=== PATIENT | female | born 1950 | race Caucasian/White ===

== ENCOUNTER → 2016-12-16 | Outpatient (CLI) | payer MEDICARE | LOC: MC.RAD 14:20 | DX: Z12.31 Encounter for screening mammogram for malignant neoplasm of breast (principal); N63 Unspecified lump in breast ==

== ENCOUNTER → 2016-12-25 | Outpatient (CLI) | payer MEDICARE | LOC: MC.RAD 08:17 | DX: N63 Unspecified lump in breast (principal) ==

== ENCOUNTER → 2021-02-14 | Outpatient (CLI) | payer MEDICARE ==
[~2021-02-14] VITALS: Ht 149.9 cm; Wt 52.1 kg
[~2021-02-14] MED LIST: ALEVE 220MG220 MG PO; AMBIEN 10MG10 MG PO; ASPI325T6 PO; ASPIRIN E.C. 8181 MG PO; ATIVAN 1MG T1 MG/TAB PO; CHANTIX 1MG1 MG PO; CLARITIN D TAB1 TAB PO; EXCEDRIN1 TAB PO; IMDUR 30MG30 MG/TAB PO; LIPITOR 40MG TA40 MG PO; MUCINEX DM 30 M1 TE1 PO; NITROSTAT0.4 MG/TAB SL; PROTONIX 40MG T40 MG PO; ZOLOFT 100MG100 MG PO
[2021-02-14 10:55] VITALS: BP 136/84; PULSE 82; TEMP 98.5
[2021-02-14 12:09] VITALS: BP 144/83; PULSE 84
[2021-02-14 12:10] VITALS: BP 146/91; PULSE 86
[2021-02-14 12:11] VITALS: BP 138/97; PULSE 88
[2021-02-14 12:12] VITALS: BP 145/92; PULSE 92
== END ==
LOC: COL.CARD 09:55
DX: F41.9 Anxiety disorder, unspecified (principal); R07.89 Other chest pain; R60.1 Generalized edema
CPT/HCPCS: A9500; J2785

== ENCOUNTER → 2021-02-15 | Outpatient (CLI) | payer MEDICARE | LOC: COL.VAS 12:07 | DX: I34.0 Nonrheumatic mitral (valve) insufficiency (principal); F41.9 Anxiety disorder, unspecified; R60.1 Generalized edema ==

== ENCOUNTER 2021-03-07 12:01 | Day surgery (SDC) | payer MEDICARE ==
[~2021-03-07] VITALS: Ht 149.9 cm; Wt 53.0 kg
[2021-03-07] VITALS (9 sets, daily range): BP systolic 97–146; BP diastolic 63–97; PULSE 60–86; TEMP 98
[~2021-03-07 12:01] MED LIST changes: -ASPI325T6 PO; -ASPIRIN E.C. 8181 MG PO; -CHANTIX 1MG1 MG PO; -IMDUR 30MG30 MG/TAB PO; -LIPITOR 40MG TA40 MG PO; -NITROSTAT0.4 MG/TAB SL
[2021-03-07 12:48] LABS: HEMATOCRIT 42.2 % (37.0-47.0); HEMOGLOBIN 14.4 g/dl (12.5-16.0); MEAN CELL VOLUME 98 fl (80.0-100.0); MEAN CORPUSCULAR HEMOGLOBIN 33 pg (27.0-31.0); MEAN CORPUSCULAR HGB CONC 34 g/dl (33.0-37.0); MEAN PLATELET VOLUME 9.3 fl (7.4-10.4); PLATELET COUNT 329 K/mm3 (130-400); RED BLOOD COUNT 4.33 M/mm3 (4.10-5.30); REDCELL DISTRIBUTION WIDTH-CV 14.1 % (11.5-14.5)
[2021-03-07] MEDS ORDERED: ASPIRIN E.C. 8181 MG PO (12:54)
[2021-03-07] MEDS ORDERED: ASPI325T6 PO (12:55)
[2021-03-07 12:56] LABS: INR 1.1 (0.8-3.0)
[2021-03-07] MEDS ORDERED: CHANTIX 1MG1 MG PO (12:56)
[2021-03-07] MEDS ORDERED: NITROSTAT0.4 MG/TAB SL (12:57)
[2021-03-07 12:58] LABS: CALCIUM 9.7 mg/dL (8.4-10.2); CREATININE, serum 0.67 (0.52-1.25); POTASSIUM 3.6 mmol/L (3.4-5.0)
[2021-03-07 12:59] LABS: PARTIAL THROMBOPLASTIN TIME 33.9 SECONDS (26.0-37.0)
--- NOTE | 2021-03-07 13:53 | NUR ---
SEE MERGE DOCUMENTATION FOR MEDICATION ADMINISTRATION TIMES AND INTRA/POST PROCEDURE SEDATION ASSESSMENTS.
--- NOTE | 2021-03-07 14:30 | NUR ---
PT TO EU 10 VIA BED FROM LOOM REPAIRER, PT IS AWAKE AND ALERT. NO C/O PAIN, CALL LIGHT IN REACH, TR BAND IN TACT WITH 10CC OF AIR, REVIEWED ACTIVITY WITH PT, ON TELE, SIPS ON WATER AND TAKES CRACKERS
[2021-03-07] MEDS ORDERED: LIPITOR 40MG TA40 MG PO (14:42)
[2021-03-07] MEDS ORDERED: IMDUR 30MG30 MG/TAB PO (14:43)
--- NOTE | 2021-03-07 15:15 | NUR ---
PT USES PHONE IN BED, ECHO ORDERED AND DONE. NO C/O, DID NOT WANT MEAL AT THIS TIME
--- NOTE | 2021-03-07 16:00 | NUR ---
PT UP TO B/R TO VOID, TOLERATED WELL, ASSESSMENT UNCHANGED
--- NOTE | 2021-03-07 16:30 | NUR ---
AIR RELEASED FROM BAND 2CC THEN WAITED 10 MIN RELEASED 2CC, AIR REMOVED AT 1650, NO BLEEDING OR SWELLING NOTED, BANDAID OVER SITE, WITH COBAN FOR SUPPORT. REVIEWED DISCHARGE INST. WITH PT, PT WILL TELEPHONE MAINTAINER 2 NEW RX TODAY, ALSO REVIEWED ACTIVITY AND PRECAUTIONS TO WRIST, ALSO APPTS MADE REVIEWED WITH PT WITH VERBAL UNDERSTANDING/.
--- NOTE | 2021-03-07 17:00 | NUR ---
IV D'CD INTACT AND PT IS UP IN ROOM DRESSED. DISCHARGED AT 1710 VIA W/C TO CAR WITH SON
== END 2021-03-07 17:15 | disposition home or self-care (01) ==
LOC: COL.CAR 12:01
PROVIDERS: Internal Medicine Cardiovascular Disease
DX: I25.10 Atherosclerotic heart disease of native coronary artery without angina pectoris (principal); E78.2 Mixed hyperlipidemia; K21.9 Gastro-esophageal reflux disease without esophagitis; F17.210 Nicotine dependence, cigarettes, uncomplicated; Z79.899 Other long term (current) drug therapy; Z20.822 Contact with and (suspected) exposure to COVID-19; Z83.3 Family history of diabetes mellitus
CPT/HCPCS: J1644; J2250; J3010; Q9967

== ENCOUNTER → 2021-03-16 | Outpatient (CLI) | payer MEDICARE ==
[~2021-03-16] MED LIST changes: +ASPI325T6 PO; +ASPIRIN E.C. 8181 MG PO; +CHANTIX 1MG1 MG PO; +IMDUR 30MG30 MG/TAB PO; +LIPITOR 40MG TA40 MG PO; +NITROSTAT0.4 MG/TAB SL
== END ==
LOC: COL.PUL 07:33
DX: I25.118 Atherosclerotic heart disease of native coronary artery with other forms of angina pectoris (principal)

== ENCOUNTER 2021-06-15 16:02 | Emergency (ER) | payer MEDICARE ==
[~2021-06-15] VITALS: Ht 149.9 cm; Wt 51.8 kg
[2021-06-15 17:25] LABS: BASO # 0.1 K/mm3 (0.0-0.2); BASO % 0.7 % (0.0-2.0); EOS # 0.3 K/mm3 (0.0-0.7); EOS % 3.2 % (0.0-4.0); GRAN % 46.6 % (42.2-75.2); HEMATOCRIT 37.6 % (37.0-47.0); HEMOGLOBIN 12.1 g/dl (12.5-16.0); LYMPH # 3.5 K/mm3 (1.2-3.4); LYMPH % 41.5 % (20.0-51.0); MEAN CELL VOLUME 94 fl (80.0-100.0); MEAN CORPUSCULAR HEMOGLOBIN 30 pg (27-31); MEAN CORPUSCULAR HGB CONC 32 g/dl (33.0-37.0); MEAN PLATELET VOLUME 9.3 fl (7.4-10.4); MONO # 0.7 K/mm3 (0.1-0.6); MONO % 7.9 % (1.7-9.3); PLATELET COUNT 289 K/mm3 (130-400); RED BLOOD COUNT 3.99 M/mm3 (4.10-5.30); REDCELL DISTRIBUTION WIDTH-CV 15.1 % (11.5-14.5)
[2021-06-15 17:33] LABS: INR 1.1 (0.8-3.0); PROTHROMBIN TIME 12.7 SECONDS (9.7-12.8)
[2021-06-15 17:36] LABS: PARTIAL THROMBOPLASTIN TIME 34.2 SECONDS (26.0-37.0)
[2021-06-15 17:45] LABS: ALBUMIN 3.5 gm/dL (3.4-4.8); BILIRUBIN,TOTAL 0.3 mg/dL (0.2-1.2); CALCIUM 8.9 mg/dL (8.4-10.2); CREATININE, serum 0.69 mg/dL (0.57-1.11); TOTAL PROTEIN 7.1 gm/dL (6.2-8.1)
[2021-06-15 17:51] LABS: TROPONIN-I 0.016 ng/mL (0.00-0.033)
[2021-06-15 21:47] VITALS: BP 148/91; PULSE 96; TEMP 97.8
== END 2021-06-15 21:47 | disposition home or self-care (01) ==
LOC: COL.ER 16:02
PROVIDERS: Emergency Medicine
DX: R06.02 Shortness of breath (principal); R00.0 Tachycardia, unspecified; R60.0 Localized edema; E87.6 Hypokalemia; R79.89 Other specified abnormal findings of blood chemistry; E78.5 Hyperlipidemia, unspecified; I25.10 Atherosclerotic heart disease of native coronary artery without angina pectoris; Z87.891 Personal history of nicotine dependence; Z79.899 Other long term (current) drug therapy; Z79.82 Long term (current) use of aspirin; Z20.822 Contact with and (suspected) exposure to COVID-19
CPT/HCPCS: J1940; J7040; Q9967

== ENCOUNTER 2021-06-27 13:49 | Outpatient (RCR) | payer MEDICARE | END 2021-06-29 | disposition home or self-care (01) | LOC: COL.CR | DX: Z48.812 Encounter for surgical aftercare following surgery on the circulatory system (principal); Z95.1 Presence of aortocoronary bypass graft; I25.10 Atherosclerotic heart disease of native coronary artery without angina pectoris ==

== ENCOUNTER 2021-07-27 13:55 | Outpatient (RCR) | payer MEDICARE | END 2021-07-30 06:18 | disposition home or self-care (01) | LOC: COL.CR 13:55 | DX: Z48.812 Encounter for surgical aftercare following surgery on the circulatory system (principal); Z95.1 Presence of aortocoronary bypass graft; I25.10 Atherosclerotic heart disease of native coronary artery without angina pectoris ==

== ENCOUNTER → 2021-08-10 | Outpatient (CLI) | payer MEDICARE | LOC: COL.RAD 13:06 | DX: Z95.1 Presence of aortocoronary bypass graft (principal) ==

== ENCOUNTER 2021-09-26 06:15 | Inpatient (IN) | payer MEDICARE ==
[~2021-09-26] VITALS: Ht 149.9 cm; Wt 44.8 kg
[2021-09-26 07:00] LABS: COLLECTION METHOD CLEAN CATCH
[2021-09-26 07:09] LABS: BASO # 0.1 K/mm3 (0.0-0.2); BASO % 0.4 % (0.0-2.0); EOS % 0.1 % (0.0-4.0); GRAN # 10.5 K/mm3 (1.4-6.5); GRAN % 75.4 % (42.2-75.2); HEMATOCRIT 37.5 % (37.0-47.0); HEMOGLOBIN 13.2 g/dl (12.5-16.0); LYMPH % 14.1 % (20.0-51.0); MEAN CELL VOLUME 87 fl (80.0-100.0); MEAN CORPUSCULAR HEMOGLOBIN 31 pg (27-31); MEAN CORPUSCULAR HGB CONC 35 g/dl (33.0-37.0); MEAN PLATELET VOLUME 9.5 fl (7.4-10.4); MONO # 1.3 K/mm3 (0.1-0.6); MONO % 9.1 % (1.7-9.3); PLATELET COUNT 429 K/mm3 (130-400); RED BLOOD COUNT 4.32 M/mm3 (4.10-5.30); REDCELL DISTRIBUTION WIDTH-CV 15.8 % (11.5-14.5)
[2021-09-26 07:26] LABS: ALBUMIN 2.6 gm/dL (3.4-4.8); BILIRUBIN,TOTAL 0.7 mg/dL (0.2-1.2); CALCIUM 9.2 mg/dL (8.4-10.2); CREATININE, serum 1.12 mg/dL (0.57-1.11); MUCOUS Present (NOT PRESENT); PH 5 (5-8); SQUAMOUS EPITHELIAL 0-2 /hpf (0-10); TOTAL PROTEIN 7.7 gm/dL (6.2-8.1); URINE APPEARANCE Clear (CLEAR/HAZY); URINE BACTERIA None Seen /hpf (NONE SEEN); URINE BILIRUBIN Negative (NEGATIVE); URINE BLOOD 1+ (NEGATIVE); URINE COLOR Yellow (YELLOW); URINE GLUCOSE Negative (NEGATIVE); URINE KETONE 2+ (NEGATIVE); URINE LEUKOCYTE ESTERASE Negative (NEGATIVE); URINE NITRATE Negative (NEGATIVE); URINE PROTEIN(semi-quant) 2+ (NEGATIVE); URINE UROBILINOGEN >=4.0 (NEGATIVE)
[2021-09-26 07:38] LABS: POTASSIUM 1.9 mmol/L (3.5-4.5); TROPONIN-I 0.29 ng/mL (0.00-0.033)
[2021-09-26 08:08] LABS: INR 2.3 (0.8-3.0); PROTHROMBIN TIME 25.2 SECONDS (9.7-12.8)
[2021-09-26 08:10] LABS: PARTIAL THROMBOPLASTIN TIME 37.6 SECONDS (26.0-37.0)
[2021-09-26] MEDS ORDERED: LASIX 20MG TABL20 MG PO (08:33)
[2021-09-26] MEDS ORDERED: ZEBETA 5MG5 MG PO (08:40)
[2021-09-26 11:32] VITALS: BP 128/70; PULSE 84; TEMP 97.9
[2021-09-26 14:27] LABS: CALCIUM 8.4 mg/dL (8.4-10.2); CREATININE, serum 0.82 mg/dL (0.57-1.11)
[2021-09-26 14:39] LABS: POTASSIUM 2.1 mmol/L (3.5-4.5); TROPONIN-I 6 HR POST INITIAL 0.197 ng/mL (0.00-0.033)
[2021-09-26 17:02] VITALS: BP 108/58; PULSE 95; TEMP 98.2
--- NOTE | 2021-09-26 18:55 | NUR ---
PT LAYING IN BED, DENIES ANY NEEDS AT THIS TIME. DOES HAVE A COMPLAINT OF PAIN IN HER BACK, BUT STATES IT MAY BE DUE TO THE BED. NO OTHER CONCERNS.
--- NOTE | 2021-09-26 19:11 | NUR ---
Pt rested in bed after arriving to the floor. She is A/O x4. Breathing even and unlabored on RA. Denies SOB. No N/V, ate a small lunch. Pt was incontinent of stool this afternoon. Very weak, and 2A to BSC. Cardizem infusing per orders, remains in Afib. Pt has no further needs, call light within reach.
[2021-09-26 20:21] VITALS: BP 123/62; PULSE 58; TEMP 98.1
[2021-09-27 00:33] VITALS: BP 101/56; PULSE 70; TEMP 97.6
--- NOTE | 2021-09-27 01:37 | NUR ---
PT IS RESTING IN HER BED, SHE HAS NOT GOTTEN MUCH SLEEP. SHE CONTINUES TO RECEIVE POTASSIUM IV. THE LAST BAG IS RUNNING AT THIS TIME. NO OTHER CONCERNS. WILL CONTINUE TO MONITOR THROUGH THE NIGHT.
[2021-09-27 04:58] VITALS: BP 111/61; PULSE 85; TEMP 98.7
--- NOTE | 2021-09-27 07:26 | NUR ---
REPORT GIVEN TO KIN MACK.
[2021-09-27 07:31] VITALS: BP 108/62; PULSE 98; TEMP 98.5
[2021-09-27 08:09] LABS: BASO % 0.2 % (0.0-2.0); EOS # 0.1 K/mm3 (0.0-0.7); EOS % 0.6 % (0.0-4.0); GRAN # 6.7 K/mm3 (1.4-6.5); GRAN % 64.1 % (42.2-75.2); LYMPH # 2.5 K/mm3 (1.2-3.4); LYMPH % 23.7 % (20.0-51.0); MEAN CELL VOLUME 88 fl (80.0-100.0); MEAN CORPUSCULAR HGB CONC 35 g/dl (33.0-37.0); MONO # 1.1 K/mm3 (0.1-0.6); MONO % 10.8 % (1.7-9.3); PLATELET COUNT 360 K/mm3 (130-400); RED BLOOD COUNT 3.13 M/mm3 (4.10-5.30); REDCELL DISTRIBUTION WIDTH-CV 16.2 % (11.5-14.5)
[2021-09-27 08:10] LABS: MEAN CORPUSCULAR HEMOGLOBIN 31 pg (27-31)
[2021-09-27 08:11] LABS: HEMATOCRIT 27.5 % (37.0-47.0); HEMOGLOBIN 9.7 g/dl (12.5-16.0)
[2021-09-27 08:39] LABS: ALBUMIN 2.1 gm/dL (3.4-4.8); BILIRUBIN,TOTAL 0.8 mg/dL (0.2-1.2); CALCIUM 8.1 mg/dL (8.4-10.2); CREATININE, serum 0.66 mg/dL (0.57-1.11); MAGNESIUM 1.8 mg/dL (1.6-2.6)
[2021-09-27 08:44] LABS: POTASSIUM 2.8 mmol/L (3.5-4.5)
--- NOTE | 2021-09-27 09:50 | NUR ---
CORTEZ and SW student met with the patient to discuss discharge plan. The patient lives alone in [place]. She reports independence with ADLs and does not have any DME. The patient's PCP is Dr. Enoch Molina and she receives her medications from [facility]. She reports no difficulties obtaining her meds. The patient does not have a DPOA-HC, but she states that she has the paperwork at home for it. She was interested in receiving a new DPOA-HC form. CORTEZ provided. The patient states that her daughter, Karla, will be here later today. The patient states that she is not and has two children: Patricio Loya (ph#[phone]) and Karla Alvarez (ph#[phone]). The patient plans to either return home or states that she may stay with her daughter upon discharge. Her daughter lives in [place], [place]. PT/OT have been ordered. SW to follow. *Discharge plan: home or home with daughter. Will await therapy's recs*
--- NOTE | 2021-09-27 09:53 | NUR ---
MIRIAM BARTH NOTIFIED OF LOW POTASSIUM AND HEMOGLOBIN DROP EARLIER IN SHIFT AT APPROX 0845, ASKED ABOUT ASPIRIN ADMINISTRATION, MIRIAM STATED TO STILL GIVE.
--- NOTE | 2021-09-27 10:52 | NUR ---
pt refused the procedure. she wanted to talk to dr wilder. she also refused the procedure for dr wilder
[2021-09-27 11:36] VITALS: BP 101/65; PULSE 70; TEMP 98.2
--- NOTE | 2021-09-27 13:41 | NUR ---
Patient A&O, pleasant. resusing today's ordered lexiscan. Agreed to tomorrow. Wants to eat, and wants to have bowel movement. However adamant about no stool softeners. Patient daughter at bedside. Concerned at lack of knowledge of mother's condition. Daughter lives 5hrs away in [place]. Patient getting replacement potassium, and Mag. NSR on tele, with inverted Pwaves. Will continue to monitor telemetry status.
[2021-09-27 15:50] VITALS: BP 119/61; PULSE 76; TEMP 98.4
--- NOTE | 2021-09-27 17:34 | NUR ---
Patient prepared for lexiscan in am, needs reinforcement and encouragement to prevent backinig out again. Patient daughter will be in first thing in the am. currently resting in bed comfortably. No c/o pain at this time.
[2021-09-27 20:14] VITALS: BP 106/50; PULSE 73; TEMP 97.6
--- NOTE | 2021-09-27 20:30 | NUR ---
Patient is sleeping in bed, easily arousable. Alert and oriented x 4, VSS. States continues pain in her back controlled with tylenol. Telemetry in place, NSR. Assissted to the restromm with the use of a walker. Assessment completed, medications provided. Explained NPO for lexiscan. No other needs at this time. Call light within reach. Bed alarm on.
[2021-09-28] VITALS (12 sets, daily range): BP systolic 118–147; BP diastolic 51–86; PULSE 59–90; TEMP 96.9–98.3
--- NOTE | 2021-09-28 06:05 | NUR ---
Patient continued with back pain along the night, getting tylenol. NPO after midnight. Report will be given to day RN.
[2021-09-28 07:00] LABS: MEAN CELL VOLUME 92 fl (80.0-100.0); MEAN CORPUSCULAR HGB CONC 34 g/dl (33.0-37.0); MEAN PLATELET VOLUME 9.5 fl (7.4-10.4); PLATELET COUNT 371 K/mm3 (130-400); RED BLOOD COUNT 3.03 M/mm3 (4.10-5.30); REDCELL DISTRIBUTION WIDTH-CV 16.4 % (11.5-14.5)
[2021-09-28 07:07] LABS: HEMATOCRIT 27.9 % (37.0-47.0); HEMOGLOBIN 9.5 g/dl (12.5-16.0); MEAN CORPUSCULAR HEMOGLOBIN 31 pg (27-31)
[2021-09-28 07:19] LABS: CALCIUM 8.3 mg/dL (8.4-10.2); CREATININE, serum 0.6 mg/dL (0.57-1.11); MAGNESIUM 1.9 mg/dL (1.6-2.6); POTASSIUM 3.8 mmol/L (3.5-4.5)
--- NOTE | 2021-09-28 07:27 | NUR ---
PATIENT RESTING COMFORTABLY IN BED, TWO ASSIST TO BEDSIDE COMODE. INCONTINENT OF SOFT BROWN STOOL IN BRIEF. CHANGED BRIEF, BED SHEETS AND PILLOW CASE. MRSA SWAB OBTAINED AND SET TO LAB. NO CURRENT COMPLAINTS OF PAIN. PATIENT EDUCATED ON TURNING FROM SIDE TO SIDE, AND NOT STAYING ON BACK ON STACY PROMENENCES. PATIENT SETTLED BACK IN BED. ALARM ON, BED LOCKED IN LOWEST SETTING.
--- NOTE | 2021-09-28 09:37 | NUR ---
Several visit attempts; Rn Eligibility left card informing patient of the availability of Spiritual Care and Rn Eligibility Care, offering God's blessings as well.
--- NOTE | 2021-09-28 14:49 | NUR ---
PT/OT are recommending home with home health. PT is recommeding a FWW. CORTEZ met with the patient and her daughter, Karla, to discuss their recommendation and review discharge plan. Karla inquired if the patient would need a SNF. CORTEZ informed her how therapy is not recommending she would need one and that she is appropriate to return home with daughter. Rayna states that they really have not decided on a discharge plan yet. Her plan was for the patient to return home with her, she just wanted to make sure the patient did not need more assistance then she could provide. She states that home health at the patient's home would not be an option, do to it being cluttered and not able to move around much. She states that they still need to think about what they will do upon discharge. The patient and her daughter are open to getting a FWW from [facility]. CORTEZ contacted and faxed and emailed a FWW order to Jennie at [facility]. [facility] will need to be notified when patient is ready to discharge for them to deliver the FWW.
[2021-09-28 15:54] LABS: HEMATOCRIT 29.7 % (37.0-47.0); HEMOGLOBIN 10.3 g/dl (12.5-16.0)
--- NOTE | 2021-09-28 18:52 | NUR ---
PATIENT EATING DINNER, NO COMPLAINTS OF PAIN, AWARE OF CARE PLAN FOR CARDIAC CATH ON FRIDAY. DAUGHTER TO GO BACK TO [place] TO SET UP HOME FOR HER WHEN SHE IS DISCHARGED. RESTING COMFORTABLY IN BED.
--- NOTE | 2021-09-28 19:45 | NUR ---
Patient is resting in bed, assisted to use the commode. Alert and oriented x 4, VSS. Daughter at the bedside. Pt complains of back pain. Tylenol provided. Telemetry in place, NSR. Assessment completed, medications provided. No other needs at this time. Call light within reach.
[2021-09-29 03:44] VITALS: BP 141/67; PULSE 57; TEMP 98.5
[2021-09-29 06:24] LABS: BASO % 0.2 % (0.0-2.0); EOS # 0.1 K/mm3 (0.0-0.7); GRAN # 8.3 K/mm3 (1.4-6.5); GRAN % 68.4 % (42.2-75.2); LYMPH # 2.3 K/mm3 (1.2-3.4); LYMPH % 19.1 % (20.0-51.0); MEAN CELL VOLUME 93 fl (80.0-100.0); MEAN CORPUSCULAR HGB CONC 33 g/dl (33.0-37.0); MEAN PLATELET VOLUME 9.5 fl (7.4-10.4); MONO # 1.3 K/mm3 (0.1-0.6); MONO % 10.6 % (1.7-9.3); PLATELET COUNT 389 K/mm3 (130-400); REDCELL DISTRIBUTION WIDTH-CV 16.4 % (11.5-14.5)
[2021-09-29 06:33] LABS: HEMATOCRIT 29.6 % (37.0-47.0); HEMOGLOBIN 9.8 g/dl (12.5-16.0); MEAN CORPUSCULAR HEMOGLOBIN 31 pg (27-31)
[2021-09-29 06:48] LABS: CALCIUM 8.7 mg/dL (8.4-10.2); CREATININE, serum 0.56 mg/dL (0.57-1.11); MAGNESIUM 1.8 mg/dL (1.6-2.6); POTASSIUM 3.8 mmol/L (3.5-4.5)
--- NOTE | 2021-09-29 06:50 | NUR ---
Patient has had a calm night. She just complains about back pain and asks for PRN tylenol. Report will be given to day RN
[2021-09-29 08:14] VITALS: BP 146/77; PULSE 79; TEMP 99.2
--- NOTE | 2021-09-29 11:00 | NUR ---
Assessment completed, alert/oriented, vital signs stable, continues to report moderate back pain/ Tylenol given and she refused Lidocaine patch, heart RRR/ SR on tele, plans for heart cath on 10/01, lungs CTA/ no resp.Difficutly, and myself have discussed plan of care with pateitn and daughter, answered questions, dev continue to monitor, call light in reach and patient denies other, needs at this time
[2021-09-29 12:32] VITALS: BP 99/66; PULSE 85; TEMP 98.2
[2021-09-29 16:38] VITALS: BP 116/73; PULSE 73; TEMP 98.1
[2021-09-29 20:25] VITALS: BP 142/66; PULSE 80; TEMP 98
--- NOTE | 2021-09-29 21:15 | NUR ---
Patient is resting in bed, alert and oriented x 4, VSS. Complains of pain in her back and asks for her dose of tylenol. Telemetry in place, NSR. Assessment completed, medications provided. No other needs at this time. Call light within reach.
[2021-09-30 00:06] VITALS: BP 134/75; PULSE 59; TEMP 98.8
[2021-09-30 04:17] VITALS: BP 147/81; PULSE 79; TEMP 98.4
[2021-09-30 06:33] LABS: CALCIUM 8.9 mg/dL (8.4-10.2); CREATININE, serum 0.55 mg/dL (0.57-1.11); MAGNESIUM 1.8 mg/dL (1.6-2.6); POTASSIUM 3.6 mmol/L (3.5-4.5)
--- NOTE | 2021-09-30 06:53 | NUR ---
Pt was not able to sleep at night. Tylenol is not working as before. Repor was given to day RN.
[2021-09-30 07:34] LABS: HEMOGLOBIN 10.5 g/dl (12.5-16.0); MEAN CELL VOLUME 93 fl (80.0-100.0); MEAN CORPUSCULAR HEMOGLOBIN 32 pg (27-31); MEAN CORPUSCULAR HGB CONC 34 g/dl (33.0-37.0); MEAN PLATELET VOLUME 9.2 fl (7.4-10.4); PLATELET COUNT 367 K/mm3 (130-400); RED BLOOD COUNT 3.33 M/mm3 (4.10-5.30); REDCELL DISTRIBUTION WIDTH-CV 16.6 % (11.5-14.5)
[2021-09-30 07:38] LABS: HEMATOCRIT 30.8 % (37.0-47.0)
[2021-09-30 08:01] VITALS: BP 133/81; PULSE 78; TEMP 98.7
--- NOTE | 2021-09-30 08:01 | NUR ---
Assessment completed, alert/oriented, vital signs stable, continues to report mod-severe back pain/ tylenol being uses often and I placed a heating pad for her this morning and recommended frequent position changes, she denies any chest pain or discomfort, abd soft and BS+, still having some dark stools, hemaglobin stable, heart RRR/ SR on tele, lungs CTA/ no resp.difficulty noted, she reported getting no sleep overnight and I will discuss with hospitalist today, she denies other needs at this time, will continue to monitor
[2021-09-30 11:59] VITALS: BP 118/68; PULSE 76; TEMP 97.1
--- NOTE | 2021-09-30 15:16 | NUR ---
SW informed by VICE PRESIDENT DIVERSITY that patient would be having a heart cath placed on 10/01/2021. SW will continue to follow.
[2021-09-30 16:38] VITALS: BP 133/74; PULSE 65; TEMP 98.3
[2021-09-30 20:18] VITALS: BP 114/59; PULSE 79; TEMP 98.4
--- NOTE | 2021-09-30 20:30 | NUR ---
Patient is resting in bed, alert and oriented x 4, VSS. Continues with pain in her back. She is using a heating pad. Pt gown is wet. Assissted to the commmode, hygiene provided. Gawn changed. Assessment completed, medications provided. No other needs at this time. Call light within reach.
[2021-10-01] VITALS (19 sets, daily range): BP systolic 107–166; BP diastolic 42–91; PULSE 59–80; TEMP 97.1–98.3
--- NOTE | 2021-10-01 07:02 | NUR ---
Patient has been NPO after midnight. Continues complaining of back pain. She used the commode several times. Some baron SORIANO. Report will be given to day RN.
[2021-10-01 07:03] LABS: CREATININE, serum 0.59 mg/dL (0.57-1.11); POTASSIUM 4.2 mmol/L (3.5-4.5)
[2021-10-01 07:35] LABS: HEMOGLOBIN 11.2 g/dl (12.5-16.0); MEAN CELL VOLUME 91 fl (80.0-100.0); MEAN CORPUSCULAR HEMOGLOBIN 31 pg (27-31); MEAN CORPUSCULAR HGB CONC 35 g/dl (33.0-37.0); MEAN PLATELET VOLUME 9.2 fl (7.4-10.4); PLATELET COUNT 393 K/mm3 (130-400); RED BLOOD COUNT 3.57 M/mm3 (4.10-5.30); REDCELL DISTRIBUTION WIDTH-CV 16.9 % (11.5-14.5)
[2021-10-01 07:42] LABS: HEMATOCRIT 32.4 % (37.0-47.0)
--- NOTE | 2021-10-01 08:00 | NUR ---
PATIENT AWAKE, LAYING IN BED, C/O PAIN. REPLACED HEATING PAD, SET TO 100 DEGREES WITH 30 MINUTE CYCLES FOR LOWER LUMBAR PAIN. PATIENT NPO FOR CARDIAC CATH TODAY. PICC LINE BLUE PORT FLUSHES AND DRAWS. REDREW H&H FOR LAB CONFIRMATION OF H&H. CONSENT FOR PROCEDURE SIGNED. PATIENT MEDS GIVEN, CALL GARCIA IN REACH, BELONGINGS IN REACH, RESTING.
[2021-10-01 08:14] LABS: EOSINOPHIL 2 % (0-4); LYMPHOCYTE 22 % (20.0-51.0); NEUTROPHILS 74 % (42.0-75.2); TARGET CELLS 1+
[2021-10-01 08:15] LABS: ANISOCYTOSIS 1+; SCHISTOCYTES 1+; SPHEROCYTE 1+
[2021-10-01 09:52] LABS: INR 1.5 (0.8-3.0); PROTHROMBIN TIME 16.3 SECONDS (9.7-12.8)
--- NOTE | 2021-10-01 15:36 | NUR ---
Patients signed walker order faxed to [facility]
--- NOTE | 2021-10-01 16:34 | NUR ---
PATIENT ALERT AND ORIENTED, VERBALIZES UNDERSTANDING PROCEDURE. NO REPORTS OF CHEST PAIN OR DISCOMFORT. PLEASE SEE MERGE FOR CATH PROCEDURE DETAILS INCLUDING HEMODYNAMIC MONITORING AND MEDICATION ADMINISTRATION
--- NOTE | 2021-10-01 18:16 | NUR ---
PATIENT ARRIVED ON UNIT FROM EARTH SCIENCE FACULTY MEMBER AT 1800 WITH NO COMPLAINTS OF PAIN. FEMERAL SITE INTACT, VITALS TAKEN, 1/2 NS RUNNING AT 100ML/HR. PATIENT EDUCATED ON LAYING FLAT, HOLDING SITE IF COUGHING, NOT LIFTING HEAD OR MOVING LEGS FOR NEXT 4 HOURS. PAIENT REQUESTING DIET. LOG ROLLED PATIENT FOR BED RODRIGUEZ, CLEAR YELLOW URINE, WITH NO PAIN OR DISCOMFORT VOIDED. CLEANED AND REPOSITIONED. SOILED CATH PROCEDURE LINENS REMOVED. PATIENT RESTING COMFORTABLY IN BED.
--- NOTE | 2021-10-01 18:53 | NUR ---
PATIENT C/O 9/10 PAIN IN LOWER LUMBAR.
--- NOTE | 2021-10-01 19:06 | NUR ---
PATIENT RETURNED FROM PRACTICE MANAGER, RESTING FLAT IN BED. C/O PAIN. FLEXRIL AND AMBIEN REQUESTED. POST CATH VITALS PERFORMED AND DOCUMENTED. NO SIGNIFICANT EVENTS.
[2021-10-02] VITALS (11 sets, daily range): BP systolic 122–164; BP diastolic 60–92; PULSE 67–87; TEMP 97.4–98.6
--- NOTE | 2021-10-02 02:59 | NUR ---
Report received from day shift nurse. Patient is A&Ox3 and pleasant. Patient returned to the floor earlier from a heart cath. Patients right femoral site is CD&I, covered with gauze. Postop vitals were completed and WNL. Full body assessment completed and medication administration completed without difficulty. Patient has ambulated to the bathroom and gait is steady with no signs of weakness. Patient remains on contact precautions due to MRSA. Patient has denied pain throughout the shift and has expressed that she has been able to sleep since her procedure. Will continue to monitor, call light within reach.
[2021-10-02 06:22] LABS: BASO % 0.3 % (0.0-2.0); EOS % 0.2 % (0.0-4.0); GRAN # 10.3 K/mm3 (1.4-6.5); GRAN % 73.4 % (42.2-75.2); HEMOGLOBIN 10.8 g/dl (12.5-16.0); LYMPH # 2.3 K/mm3 (1.2-3.4); LYMPH % 16.2 % (20.0-51.0); MEAN CELL VOLUME 91 fl (80.0-100.0); MEAN CORPUSCULAR HEMOGLOBIN 31 pg (27-31); MEAN CORPUSCULAR HGB CONC 34 g/dl (33.0-37.0); MEAN PLATELET VOLUME 9.4 fl (7.4-10.4); MONO # 1.3 K/mm3 (0.1-0.6); MONO % 9.4 % (1.7-9.3); PLATELET COUNT 399 K/mm3 (130-400); RED BLOOD COUNT 3.49 M/mm3 (4.10-5.30); REDCELL DISTRIBUTION WIDTH-CV 16.9 % (11.5-14.5)
[2021-10-02 06:29] LABS: HEMATOCRIT 31.9 % (37.0-47.0)
[2021-10-02 06:42] LABS: CALCIUM 8.8 mg/dL (8.4-10.2); CREATININE, serum 0.68 mg/dL (0.57-1.11)
--- NOTE | 2021-10-02 06:57 | NUR ---
PATIENT SITTING UP AT SIDE OF BED, AUTHOR RESETTLED PATIENT, CHECKED FEMERAL SITE, CLEAN/DRY/INTACT. PATINET STATES "IF BACK PAIN CAN'T BE SOLVED, I'M READY TO GET OUT OF HERE". WILL CONSULT WITH PROVIDER FOR OTHER REMEDIES FOR PAIN RELIEF. EGD SCHEDULED FOR 1130AM.
--- NOTE | 2021-10-02 10:18 | NUR ---
NOTED BRIGHT RED OOZING FROM PATIENT FEMORAL CATH SITE, MARKED SIZE ~ QUARTER IN DIAMTER. PER Navjot SHEARER RN - 20MIN MANUAL PRESSURE. OBSERVE FOR HEMATOMA AND CONTINUED BLEED. INSTRUCTED PATIENT TO MAINTAIN BEDREST FOR NOW AND TO STAY LAYING DOWN. ROLLING ACCEPTABLE, BUT NO SITTING UP FOR AN HOUR. WILL RECHECK IN 30MIN.
--- NOTE | 2021-10-02 10:59 | NUR ---
PATIENT UNCOMFORTABLE, TOSSING AND TURNING IN BED. C/O LOWER BACK PAIN, CONTINUOUS. NPO CONTINUED FOR EGD SCHEDULED AT 1130. LUNG SOUNDS CLEAR, PULSES 2+, AMBULATING IN ROOM INDEPENDENTLY.
--- NOTE | 2021-10-02 12:47 | NUR ---
RECIEVED PATIENT FROM ENDO. POSTOP VITALS STARTED. PATIENT AMBULATED TO BED WITH ROLLING WALKED FROM STRETCHR. ALERT AND ORIENTED. FATIGUED. HEATING PAD INITIATED FOR BACK PAIN. PATIENT RESTING COMFORTABLY WITH SAFEGUARD ON FEMERAL CATH SITE WITH 20ML OF AIR. CARDIOLOGY TO EVAL WHEN ROUNDING.
--- NOTE | 2021-10-02 14:46 | NUR ---
The patient may be able to discharge tomorrow. CORTEZ notified Rico at [facility] for the walker. CORTEZ contacted the patient's daughter, Karla. Karla states that the plan is for the patient to come and stay with her in [place] upon discharge. Her brother will pick the patient up from the hospital tomorrow. CORTEZ met with the patient and reviewed discharge plan. She is in agreement to the plan. CORTEZ presented and read the IM form outloud to her. The patient verbalized understanding and of discharge tomorrow. She signed the form. *Discharge plan: Will be staying with daughter in [place]*
--- NOTE | 2021-10-02 18:43 | NUR ---
PATIENT RESTING COMFORTABLY IN BED AFTER DOSE OF NORCO GIVEN. PATIENT WENT TO ENDO FOR EGD THIS MORNING, STABLE VITALS ON RETURN. [id number] VITALS PERFORMED. FEMORAL CATH SITE CD&I, NEEDLE PROCESS FELT GOODS SUPERVISOR RNS CHANGED GAUZE, TEGADERM AND REMOVED SAFE GUARD PRESSURE DRESSING. PLAN FOR DISCHARGE TOMORROW.
[2021-10-03 00:20] VITALS: BP 159/69; PULSE 55; TEMP 98.4
[2021-10-03 03:33] VITALS: BP 125/74; PULSE 84; TEMP 98.3
[2021-10-03 06:14] LABS: BASO % 0.2 % (0.0-2.0); EOS % 0.2 % (0.0-4.0); GRAN # 11.4 K/mm3 (1.4-6.5); HEMOGLOBIN 10.3 g/dl (12.5-16.0); LYMPH # 1.8 K/mm3 (1.2-3.4); LYMPH % 12.4 % (20.0-51.0); MEAN CELL VOLUME 94 fl (80.0-100.0); MEAN CORPUSCULAR HEMOGLOBIN 32 pg (27-31); MEAN CORPUSCULAR HGB CONC 34 g/dl (33.0-37.0); MEAN PLATELET VOLUME 9.4 fl (7.4-10.4); MONO # 1.3 K/mm3 (0.1-0.6); MONO % 8.7 % (1.7-9.3); PLATELET COUNT 353 K/mm3 (130-400); RED BLOOD COUNT 3.26 M/mm3 (4.10-5.30); REDCELL DISTRIBUTION WIDTH-CV 16.7 % (11.5-14.5)
[2021-10-03 06:19] LABS: HEMATOCRIT 30.5 % (37.0-47.0)
[2021-10-03 06:27] LABS: CALCIUM 8.9 mg/dL (8.4-10.2); CREATININE, serum 0.56 mg/dL (0.57-1.11); POTASSIUM 3.2 mmol/L (3.5-4.5)
[2021-10-03 08:20] VITALS: BP 146/79; PULSE 98; TEMP 98.2
[2021-10-03] MEDS ORDERED: TYLENOL 325MG325 MG PO (09:33)
[2021-10-03] MEDS ORDERED: PROTONIX 40MG T40 MG PO (09:35)
[2021-10-03] MEDS ORDERED: CARAFATE S1 GM/10 ML PO (09:35)
[2021-10-03] MEDS ORDERED: K-DUR20 MEQ PO (09:40)
[2021-10-03] MEDS ORDERED: AMOXICILLIN 8751 TAB PO (09:40)
[2021-10-03] MEDS ORDERED: PLAVIX 75MG TAB75 MG PO (09:46)
--- NOTE | 2021-10-03 10:18 | NUR ---
JENNY delivered the FWW to the patient's room. The patient is ready to discharge today. SW updated the patient's daughter, Karla. Karla confirms that the patient will be picking the patient up today. No additional needs at this time.
--- NOTE | 2021-10-03 10:45 | NUR ---
Patient sitting in bed and appears to be doing well. Very pleasant and has not addressed any concerns. Patient A&Ox4, SBA. Plan at this time is for the patient to discharge. IV ABX currently infusing, as is potassium replacement per protocol. Right femoral site from heart cath is CDI, ecchymosis is present, but site is soft and nontender.
[2021-10-03 12:10] VITALS: BP 138/75; PULSE 69; TEMP 97.8
--- NOTE | 2021-10-03 14:59 | NUR ---
Patient discharged. PICC removed by Richelle, telemetry removed by PCT. Patient wheeled out by PCT. Patient did not have any concerns at the time of discharge. All instructions and education discussed; Patient verbalized understanding.
[2021-10-03] MEDS ORDERED: CARAFATE 1GM1 G PO (20:13)
== END 2021-10-03 13:40 | disposition home or self-care (01) | DRG 871 ==
LOC: COL.ER 06:15 → MEDICAL 10:02
PROVIDERS: Family Medicine; Internal Medicine Gastroenterology; Physician Assistant; Student in an Organized Health Care Education/Training Program; ADMIT Internal Medicine
PROC: 02HV33Z Insertion of Infusion Device into Superior Vena Cava, Percutaneous Approach (ICD-10-PCS; principal; 2021-09-26)
PROC: 4A023N7 Measurement of Cardiac Sampling and Pressure, Left Heart, Percutaneous Approach (ICD-10-PCS; 2021-10-01)
PROC: B2111ZZ Fluoroscopy of Multiple Coronary Arteries using Low Osmolar Contrast (ICD-10-PCS; 2021-10-01)
PROC: 0DB78ZX Excision of Stomach, Pylorus, Via Natural or Artificial Opening Endoscopic, Diagnostic (ICD-10-PCS; 2021-10-02)
DX: A41.9 Sepsis, unspecified organism (principal); I21.4 Non-ST elevation (NSTEMI) myocardial infarction; K29.71 Gastritis, unspecified, with bleeding; K25.4 Chronic or unspecified gastric ulcer with hemorrhage; L03.116 Cellulitis of left lower limb; L03.115 Cellulitis of right lower limb; B37.0 Candidal stomatitis; T82.838A Hemorrhage due to vascular prosthetic devices, implants and grafts, initial encounter; Z66 Do not resuscitate; I10 Essential (primary) hypertension; E87.6 Hypokalemia; E78.5 Hyperlipidemia, unspecified; K21.9 Gastro-esophageal reflux disease without esophagitis; M51.37 Other intervertebral disc degeneration, lumbosacral region; S81.852A Open bite, left lower leg, initial encounter; S81.851A Open bite, right lower leg, initial encounter; D64.9 Anemia, unspecified; K31.9 Disease of stomach and duodenum, unspecified; K44.9 Diaphragmatic hernia without obstruction or gangrene; I08.1 Rheumatic disorders of both mitral and tricuspid valves; Y82.8 Other medical devices associated with adverse incidents; W54.0XXA Bitten by dog, initial encounter; Y93.89 Activity, other specified; Y92.89 Other specified places as the place of occurrence of the external cause; Z95.1 Presence of aortocoronary bypass graft; Z87.891 Personal history of nicotine dependence; Z79.82 Long term (current) use of aspirin; Z23 Encounter for immunization
CPT/HCPCS: 99223-AI; 99232-AI; 99233-AI; 99239; A9500; C1751; C1769; C1894; C9113; J1644; J2250; J2543; J2704; J2785; J3010; J3475; J3480; J7030; Q9967

== ENCOUNTER → 2021-10-12 | Outpatient (CLI) | payer MEDICARE ==
[~2021-10-12] MED LIST changes: +AMOXICILLIN 8751 TAB PO; +CARAFATE 1GM1 G PO; +CARAFATE S1 GM/10 ML PO; +K-DUR20 MEQ PO; +LASIX 20MG TABL20 MG PO; +PLAVIX 75MG TAB75 MG PO; +TYLENOL 325MG325 MG PO; +ZEBETA 5MG5 MG PO
== END ==
LOC: COL.LAB 13:08
DX: Z01.89 Encounter for other specified special examinations (principal)